=== PATIENT | male | born 1940 | race Caucasian/White ===

== ENCOUNTER 2017-06-01 15:38 | Emergency (ER) | payer OTHER ==
[~2017-06-01] VITALS: Ht 170.2 cm; Wt 81.8 kg
--- NOTE | ~2017-06-01 | CR71 ---
[facility] A Service of [facility] & [facility] RADIOLOGY TEXT RESULTS PATIENT: MALKA QUINTERO JR LOCATION: [facility] : 44 UNIT #: [id number] AGE: [address]: Marvin Graham MD SEX: M ORDER DR: [id number] [facility] [address] [place], [place] [address] [id number] MR#: [id number] Acc #: [id number] NAME: MALKA QUINTERO JR : 1940 SEX: M STUDY DATE/TIME: 06/01/2017 16:14 UNIT: [facility] ROOM: STUDY DESCRIPTION: CR Chest Single View Attending Physician: Marvin Graham M.D. Ordering Physician: Ed Marlo Woodson M.D. Primary Care Physician: Dago Tesfaye M.D. MEDICAL IMAGING REPORT This report is preliminary unless electronic signature is present EXAM Portable chest. INDICATIONS Shortness of air with activity since this morning. FINDINGS Portable view of the chest is obtained and compared to 05/06/2016. The heart size is mildly enlarged. The vascularity is normal. There are no focal infiltrates. There is mild interstitial prominence. The pacemaker is stable. IMPRESSION Mild interstitial prominence. No focal infiltrates are identified. Dictated by... Ronnie Gallardo M.D. THIS IS AN ELECTRONICALLY VERIFIED REPORT Ronnie Gallardo M.D. at 06/02/2017 12:26 PM Gladys TD: 06/02/2017 00:32 JOB #: [id number] MEDICAL IMAGING REPORT Page 1 of 1 COPY
[~2017-06-01 15:38] MED LIST: AMLODIPINE BESYL5 MG PO; ASPIRIN EC81 M1 PO; ASPIRIN81 M1 PO; ASPIRINEC PO; BENZONATATE200 MG PO; CARDURA PO; CARDURA8 MG PO; CRESTOR40 MG PO; FINASTERIDE5 MG PO; FUROSEMIDE40 MG PO; K-DUR20 ME1 PO; LASIX PO; LISINOPRIL5 MG PO; LOPRESSOR PO; METOPROLOL TAR25 MG PO; NORVASC PO; OMEGA 3 FISH OI1 CAP PO; PLAVIX PO; PROSCAR5 MG PO; TYLENOL325 M1 PO; VYTORIN 10/40 T1 TAB PO
[2017-06-01 16:17] LABS: BASOPHIL% 0.4 % (0-2.5); EOSINOPHIL% 0.3 % (0.0-7.0); HEMATOCRIT 33.2 % (38.0-50.0); HEMOGLOBIN 10.8 gm/dL (13.0-16.0); LYMPHOCYTE# 1.5 X10e3 (1.0-3.5); LYMPHOCYTE% 17.8 % (17.0-45.0); MEAN CELL VOLUME 86.4 FL (83-96); MEAN CORPUSCULAR HGB CONC 32.4 g/dL (30-36); MEAN PLATELET VOLUME 7.5 FL (6.5-11.5); MONOCYTE# 0.9 X10e3 (0-1.0); MONOCYTE% 10.1 % (3.0-12.0); NEUTROPHIL# 6.1 X10e3 (1.5-7.1); NEUTROPHIL% 71.4 % (40-75); PLATELET COUNT 258 X10e3 (140-420); RED BLOOD COUNT 3.84 X10e (3.90-5.60); WHITE BLOOD COUNT 8.6 X10e3 (4.0-10.5)
[2017-06-01 16:19] LABS: DIFF IND NO
[2017-06-01 16:33] LABS: INR 1.1; PARTIAL THROMBOPLASTIN TIME 25.9 SECONDS (23.5-31.3); PROTHROMBIN TIME (PATIENT) 11.4 SECONDS (10.0-11.7)
[2017-06-01 16:49] LABS: BUN/CREATININE RATIO 6.4; CALCIUM SERUM 8.5 mg/dL (8.4-10.2); CREATININE SERUM 2.5 mg/dL (0.6-1.4); GLOM FILT RATE Estimated 24.4 mL/min (>60); POTASSIUM 3.4 mmol/L (3.5-5.1)
== END 2017-06-01 19:35 | disposition home or self-care (01) ==
LOC: CED 15:38
PROVIDERS: Emergency Medicine
DX: N18.6 End stage renal disease (principal); Z99.2 Dependence on renal dialysis; I10 Essential (primary) hypertension; Z95.1 Presence of aortocoronary bypass graft
CPT/HCPCS: 36415; 71010; 80048; 85025; 85610; 85730; 99284